=== PATIENT | male | born 1985 | race Caucasian/White ===

== ENCOUNTER 2018-10-22 13:10 | Outpatient (CLI) | payer OTHER ==
[2018-10-22] MEDS ORDERED: GADOPENTETATE DIMEGLUMINE 5 ML VIAL IVP ONE ×3 (13:41→15:11)
[2018-10-22] MEDS ORDERED: BUFFERED LIDOCAINE 10 ML SYRINGE ONE (13:41)
[2018-10-22] MEDS ORDERED: IOTHALAMATE MEGLUMINE 50 ML VIAL ONE (13:41)
[2018-10-22] MEDS ORDERED: BUFFERED LIDOCAINE 10 ML SYRINGE IU ONE (15:11)
[2018-10-22] MEDS ORDERED: IOTHALAMATE MEGLUMINE 50 ML VIAL IVP ONE (15:11)
--- NOTE | 2018-10-22 21:31 | MRI Report ---
Reason: PAIN IN UNSPECIFIED KNEE Procedure Date: 10/22/2018 Accession Number: [id number] / [id number] Procedure: MRI - Arthrogram Knee RT CPT Code: FULL RESULT: EXAM: RIGHT KNEE MRI ARTHROGRAM WITH CONTRAST EXAM DATE: 10/22/2018 03:18 PM. CLINICAL HISTORY: Knee pain. COMPARISON: None. TECHNIQUE: Multiplanar, multisequence T1-weighted and fluid-sensitive sequences of the knee after an arthrographic injection of dilute gadolinium, dictated under a separate exam. Other: None. FINDINGS: Bones: No fractures or subluxations. No marrow edema. No bone lesions. Articular Cartilage: Unremarkable. Medial Meniscus: Small amount of internal signal seen medial meniscus posterior horn without tear. Lateral Meniscus: The lateral meniscus is intact. Cruciate Ligaments: The anterior and posterior cruciate ligaments are intact. Collateral Ligaments: The medial collateral and lateral collateral ligamentous structures are intact. Tendons: The quadriceps, patellar, semimembranosus, and popliteus tendons are unremarkable. Musculature: No edema or fatty atrophy. Other: No popliteal cyst. No loose bodies. The medial and lateral retinacula are intact. The subcutaneous tissues and fat pads are unremarkable. IMPRESSION: 1. There is a small amount of internal signal seen within the medial meniscus posterior horn. No tear. 2. Lateral meniscus, cruciates and collaterals appear unremarkable. Normal bones. Normal cartilaginous articular surfaces. [facility]
--- NOTE | 2018-10-25 14:13 | XRAY Report ---
Reason: PAIN IN UNSPECIFIED KNEE Procedure Date: 10/22/2018 Accession Number: [id number] / [id number] Procedure: FL - Arthrogram Needle Placement CPT Code: FULL RESULT: EXAM: RIGHT KNEE ARTHROGRAPHIC INJECTION WITH FLUOROSCOPIC GUIDANCE EXAM DATE: 10/22/2018 02:38 PM. CLINICAL HISTORY: History of chronic right knee pain. COMPARISON: ARTHROGRAM KNEE RT 10/22/2018 2:46 PM. TECHNIQUE: The risks, benefits, and alternatives of the procedure were discussed with the patient. All questions were answered. Written and verbal consent were obtained. The knee joint was marked under fluoroscopy and prepped and draped in a sterile manner. Local anesthesia was performed with 1% lidocaine. A 22-gauge needle was then inserted into the knee joint. 20 mL of a solution containing 50% iodinated contrast and a 1:200 dilution of gadolinium contrast in sterile saline was then injected. The needle was removed without immediate complication. Other: None. Fluoroscopy Time: 15 seconds. Number of Images: 6. FINDINGS: Bones and joints: No fracture or subluxation. Injection: Fluoroscopic images demonstrate needle placement and contrast in the knee joint. IMPRESSION: Successful fluoroscopically guided arthrographic injection of the knee. [facility]
== END 2018-10-22 13:11 | disposition home or self-care (01) ==
LOC: DI 13:10
PROVIDERS: ATTEND Nurse Practitioner Family
DX: M25.569 Pain in unspecified knee (principal)
CPT/HCPCS: 27369; 73722; 77002; Q9961